=== PATIENT | male | born 1990 | race Caucasian/White ===

== ENCOUNTER 2017-01-08 18:23 | Emergency (ER) | payer OTHER ==
[2017-01-08 18:34] VITALS: BP 125/87
--- NOTE | 2017-01-08 18:39 | EDM.PDOC ---
ED HPI GENERAL MEDICAL PROBLEM - General Chief Complaint: ENT Problem Stated Complaint: right eye pain, reddness Time Seen by Provider: 01/08/17 18:36 Source of Information: Reports: Patient History Limitations: Reports: No Limitations - History of Present Illness Onset: Gradual Duration: Day(s): Location: Reports: Face Quality: Reports: Burning Severity: Moderate Improves with: Reports: None Worsens with: Reports: None Associated Symptoms: Reports: No Other Symptoms Treatments REGISTRAR MUSEUM: Reports: Cold Therapy Right Eye Pain Score (Numeric/FACES): 5 - Related Data Allergies Allergy/AdvReac Type Severity Reaction Status Date / Time No Known Allergies Allergy Verified 01/08/17 18:24 Home Meds: Home Meds Aspirin/Caffeine [Emily Back & Body Caplet] 1 tab PO DAILY PRN 01/08/17 [History ] ED ROS GENERAL - Review of Systems Review Of Systems: See Below Constitutional: Reports: No Symptoms HEENT: Reports: Contact Lenses, Eye Discharge, Eye Pain ED EXAM GENERAL W FULL EYE - Physical Exam Exam: See Below Exam Limited By: No Limitations General Appearance: Mild Distress Eye Exam: Right Eye: Conjunctival Injection Eyelids: Bilateral: Normal Appearance Conjunctiva & Sclera: Right: Discharge, Injected Extraocular Movements: Bilateral: Intact Pupils: Normal Accommodation Pupillary Size: Bilateral: 5 mm Pupillary Reaction: Bilateral: Brisk Course - Vital Signs Last Recorded V/S: Last Vital Signs Temp 36.9 C 01/08/17 18:29 Pulse 79 01/08/17 18:33 Resp 16 01/08/17 18:33 BP 125/87 01/08/17 18:33 Pulse Ox 100 01/08/17 18:33 Departure - Departure Time of Disposition: 19:00 Disposition: Home, Self-Care 01 Clinical Impression: Conjunctivitis Qualifiers: Conjunctivitis type: acute Acute conjunctivitis type: unspecified Laterality: right Qualified Code(s): H10.31 - Unspecified acute conjunctivitis, right eye - Discharge Information Forms: ED Department Discharge Additional Instructions: Use drops as directed Follow up in clinic
== END 2017-01-08 18:46 | disposition home or self-care (01) ==
LOC: LL.ED 18:23
DX: H10.31 Unspecified acute conjunctivitis, right eye (principal); Z79.82 Long term (current) use of aspirin
CPT/HCPCS: 99282

== ENCOUNTER 2019-03-01 08:19 | Emergency (ER) | payer OTHER ==
--- NOTE | 2019-03-01 09:07 | EDM.PDOC ---
ED HPI GENERAL MEDICAL PROBLEM - General Chief Complaint: Laceration Stated Complaint: finger injury Time Seen by Provider: 03/01/19 08:40 Source of Information: Reports: Patient History Limitations: Reports: No Limitations - History of Present Illness INITIAL COMMENTS - FREE TEXT/NARRATIVE: Patient is a 28-year-old who came in from [facility] with chief complaint of laceration to right ring finger laceration was 1.75 cm he states when he was working on machinery when his hand slipped causing a laceration at the distal PIP joint. ` Onset: Today Duration: Hour(s): (2 out), Constant Location: Reports: Upper Extremity, Right Quality: Reports: Sharp, Other (Some numbness) Severity: Mild Worsens with: Reports: Movement Context: Reports: Trauma Associated Symptoms: Reports: No Other Symptoms Right Finger-Ring Pain Score (Numeric/FACES): 7 - Related Data Allergies Allergy/AdvReac Type Severity Reaction Status Date / Time No Known Allergies Allergy Verified 03/01/19 08:21 Home Meds: Home Meds Aspirin/Caffeine [Emily Back & Body Caplet] 1 tab PO DAILY PRN 01/08/17 [History ] Past Medical History HEENT History: Reports: Impaired Vision Social & Family History - Tobacco Use Smoking Status *Q: Current Every Day Smoker Years of Tobacco use: 10 Packs/Tins Daily: 1 Used Tobacco, but Quit: No - Caffeine Use Caffeine Use: Reports: Energy Drinks - Recreational Drug Use Recreational Drug Use: Yes Recreational Drug Type: Reports: Marijuana/Hashish Recreational Drug Use Frequency: Daily ED ROS GENERAL - Review of Systems Review Of Systems: ROS reveals no pertinent complaints other than HPI. ED EXAM, SKIN/RASH Exam: See Below Exam Limited By: No Limitations General Appearance: Alert, WD/WN, No Apparent Distress Ears: Normal External Exam, Normal Canal, Hearing Grossly Normal, Normal TMs Nose: Normal Inspection, Normal Mucosa, No Blood Throat/Mouth: Normal Inspection, Normal Lips, Normal Teeth, Normal Gums, Normal Oropharynx, Normal Voice, No Airway Compromise Head: Atraumatic, Normocephalic Neck: Normal Inspection, Supple, Non-Tender, Full Range of Motion Respiratory/Chest: No Respiratory Distress, Lungs Clear, Normal Breath Sounds, No Accessory Muscle Use, Chest Non-Tender Cardiovascular: Normal Peripheral Pulses, Regular Rate, Rhythm, No Edema, No Gallop, No JVD, No Murmur, No Rub GI/Abdominal: Normal Bowel Sounds, Soft, Non-Tender, No Organomegaly, No Distention, No Abnormal Bruit, No Mass (Male) Exam: Deferred Rectal (Males) Exam: Deferred Back Exam: Normal Inspection, Full Range of Motion, NT Extremities: Other (Laceration right ring finger) Neurological: Alert, Oriented, CN II-XII Intact, Normal Cognition, Normal Gait, Normal Reflexes, No Motor/Sensory Deficits Psychiatric: Normal Affect, Normal Mood Lymphatic: No Adenopathy ED SKIN PROCEDURES - Laceration/Wound Repair Right Digit - 4th (Ring) Lac/Wound length In cm: 2 (1.75 cm) Appearance: Subcutaneous Distal NVT: Neuro & Vascular Intact, No Tendon Injury Anesthetic Type: Local Local Anesthesia - Lidocaine (Xylocaine): 1% Plain Local Anesthetic Volume: 3cc Skin Prep: Chlorhexidine (Hibiciens) Exploration/Debridement/Repair: No Foreign Material Found Closed with: Sutures Suture Size: 3-0 Suture Type: Nylon, Interrupted - Additional/Other Procedure(s) Other (Free Text) Procedure(s): Patient was seen and evaluated laceration of the right index finger at the PIP joint joint distal area was prepped and draped in the usual standard form 1% lidocaine was injected after appropriate levels of anesthesia 2 interrupted sutures were placed patient tolerated well procedure wound was clean no BP was noted patient is to remove sutures in 10 days. Course - Vital Signs Last Recorded V/S: Last Vital Signs Temp 97.8 F 03/01/19 08:26 Pulse 66 03/01/19 08:26 Resp 12 03/01/19 08:26 BP 149/77 H 03/01/19 08:26 Pulse Ox 99 03/01/19 08:26 - Orders/Labs/Meds Meds: Medications Discontinued Medications Generic Name Dose Route Start Last Admin Trade Name Joe PRN Reason Stop Dose Admin Lidocaine HCl 5 ml 03/01/19 09:03 Xylocaine-Mpf 1% INJECT 03/01/19 09:04 ONETIME ONE Neomycin/Polymyxin/Bacitracin Confirm 03/01/19 09:21 Triple Antibiotic Oint Administered 03/01/19 09:22 Dose 1 each .ROUTE .STK-MED ONE Departure - Departure Time of Disposition: 09:24 Disposition: Home, Self-Care 01 Clinical Impression: Laceration of right ring finger w/o foreign body w/o damage to nail Qualifiers: Encounter type: initial encounter Qualified Code(s): S61.214A - Laceration without foreign body of right ring finger without damage to nail, initial encounter - Discharge Information *PRESCRIPTION DRUG MONITORING PROGRAM REVIEWED*: No *COPY OF PRESCRIPTION DRUG MONITORING REPORT IN PATIENT MARY: No Referrals: Tori Bran NP [Primary Care Provider] - Forms: ED Department Discharge Care Plan Goals: Patient is a 28-year-old who is seen with chief complaint of laceration of right ring finger he states he was working on a machinery when his hand slipped causing a laceration he came in for repair the area was prepped and draped 1% Xylocaine was injected after appropriate levels of anesthesia we went ahead and sutured it with 3-0 nylon interrupted 2 patient tolerated well sent home he is to go home he may take Motrin or Tylenol for pain
[2019-03-01] MEDS ORDERED: Bacitracin/Neomycin/Polymyxin B Oint 0.9 GM U/D Packet ONE (09:21)
== END 2019-03-01 09:45 | disposition home or self-care (01) ==
LOC: LL.ED 08:19
DX: S61.214A Laceration without foreign body of right ring finger without damage to nail, initial encounter (principal); F17.210 Nicotine dependence, cigarettes, uncomplicated; W31.9XXA Contact with unspecified machinery, initial encounter
CPT/HCPCS: 12001; 99282